=== PATIENT | female | born 1995 | race Two or more races ===

== ENCOUNTER 2017-08-23 19:51 | Emergency (ER) | payer BC, OTHER ==
[~2017-08-23] VITALS: Ht 152.4 cm; Wt 54.4 kg
--- NOTE | 2017-08-23 20:14 | NUR ---
PT BIB [facility] WITH A C/O UNWITNESSED SEIZURE. PT HAS HX OF BRAIN TUMOR. PT HAS AV SHUNT RT SIDE OF HEAD. PT IS AA&O X3. PT IS SPEAKING IN SLOW SENTENCES. PT'S PARENTS AND MD ARE AT THE BEDSIDE. PT IS ON THE MONITOR AND CONTINUOUS PULSE OX.
--- NOTE | 2017-08-23 20:14 | NUR ---
SR UP X 2 AND PADDED.
[2017-08-23 20:43] LABS: BASOPHILS # (AUTO) 0.2 /CMM (0.0-0.2); EOSINOPHILS % (AUTO) 3.1 % (0.0-6.0); HEMATOCRIT 44 % (33-45); HEMOGLOBIN 14.8 g/dL (11.5-14.8); LYMPHOCYTES # (AUTO) 2.4 /CMM (0.8-4.8); LYMPHOCYTES % (AUTO) 15.4 % (20.0-44.0); MEAN CORPUSCULAR HEMOGLOBIN 28 PG (26.0-33.0); MEAN CORPUSCULAR HGB CONC 34 g/dl (31.0-36.0); MEAN CORPUSCULAR VOLUME 82 fL (82-100); MONOCYTES # (AUTO) 0.7 /CMM (0.1-1.30); MONOCYTES % (AUTO) 4.7 % (2.0-12.0); NEUTROPHILS # (AUTO) 11.6 /CMM (1.8-8.9); NEUTROPHILS % (AUTO) 75.8 % (43.0-81.0); PLATELET COUNT (AUTO) 288 /CMM (150-450); RDW COEFFICIENT OF VARIATION 12.2 (11.5-15.0); RED BLOOD CELL COUNT(AUTO) 5.34 MIL/uL (4.0-5.2); WHITE BLOOD COUNT (AUTO) 15.4 K/uL (4.3-11.0)
[2017-08-23 20:45] LABS: APPEARANCE,URINE Clear (CLEAR); BILIRUBIN,URINE Negative (NEGATIVE); BLOOD, URINE Negative Ery/uL (NEGATIVE); COLOR,URINE Yellow (YELLOW); KETONES,URINE Trace (NEGATIVE); LEUKOCYTE ESTERASE ,URINE Negative (NEGATIVE); NITRITE, URINE Negative (NEGATIVE); PH,URINE 5.5 (5.0-8.0); PROTEIN,URINE 30 mg/dl (NEGATIVE); UGLUCOSE Negative (NEGATIVE); UROBILINOGEN,URINE 0.2 EU/dL (0.2)
[2017-08-23 20:54] LABS: CALCIUM, SERUM 9.1 mg/dL (8.5-10.1); CREATININE 0.9 mg/dL (0.6-1.3); POTASSIUM 4.1 mmol/L (3.5-5.1)
[2017-08-23 21:01] LABS: BACTERIA,URINE Moderate /HPF (None Seen); RBC,URINE NONE SEEN /HPF (0-2); SQUAMOUS EPITHELIAL CELL,UR Few /HPF (None Seen)
[2017-08-23 21:05] LABS: ALBUMIN 3.9 g/dL (3.4-5.0); BILIRUBIN,DIRECT 0.1 mg/dL (0.0-0.2); BILIRUBIN,TOTAL 0.7 mg/dL (0.2-1.0); TOTAL PROTEIN, SERUM 7.6 g/dL (6.4-8.2)
--- NOTE | 2017-08-23 21:10 | NUR ---
PT REQUESTED WATER AND IT WAS OK'D BY . PT TOLERATED PO WELL.
--- NOTE | 2017-08-23 21:14 | NUR ---
PT IS IN CT.
[2017-08-23 21:17] LABS: INR 0.95 (0.85-1.15)
--- NOTE | 2017-08-23 21:40 | NUR ---
PT RETURNED FROM CT.
--- NOTE | 2017-08-23 22:15 | NUR ---
PT AMBULATED TO THE BATHROOM WITH A STEADY GAIT.
--- NOTE | 2017-08-23 22:30 | NUR ---
DR. SKAGGS NEUROLOGY SPEAKING TO DR. ROSALES REGARDING POC.
--- NOTE | 2017-08-23 22:36 | NUR ---
DR SANDHU IS AT THE BEDSIDE SPEAKING TO THE PT AND HER MOTHER.
--- NOTE | 2017-08-23 23:20 | NUR ---
PT APPEARS TO BE RESTING COMFORTABLY WITH NO S/S OF PAIN OR DISTRESS NOTED.
[2017-08-23] MEDS ORDERED: LEVETIRACETAM (250 MG) 250 MG TABLET PO ONE ×2 (23:30→23:49)
--- NOTE | 2017-08-24 00:09 | NUR ---
RECEIVED A CALL FROM CARIDAD AT [facility]. PT HAS BEEN ACCEPTED UNDER DR. VERA. PT IS ASSIGNED TO #: [id number] NUMBER FOR REPORT IS [phone]. (CHOOSE OPTION 1 AND USE EXT [id number])
--- NOTE | 2017-08-24 00:13 | NUR ---
CALLED [facility] AND SPOKE TO CERTIFIED CYTOTECHNOLOGIST LUKAS TO ARRANGE AN ALS TRANSPORT TO [facility]. ALS UNIT WILL ARRIVE BETWEEN [phone]. TRIP #: [id number]
[2017-08-24 00:51] VITALS: BP 92/62
--- NOTE | 2017-08-24 00:59 | NUR ---
CALLING REPORT TO MARIANN FRASER FOR REPORT
--- NOTE | 2017-08-24 01:06 | NUR ---
REPORT GIVEN TO MILVIA DE LEON AT [facility].
--- NOTE | 2017-08-24 01:39 | NUR ---
REPORT GIVEN TO VIPUL CARBAJAL. COPY OF CHART GIVEN TO EMT. ROSEY. PT IS BEING TRANSFERRED TO [facility].
== END 2017-08-24 01:42 ==
LOC: ER 19:53 → EDBD 19:53 → ER 08-24 01:42
DX: R56.9 Unspecified convulsions (principal); R79.1 Abnormal coagulation profile; R82.99 Other abnormal findings in urine; Z85.841 Personal history of malignant neoplasm of brain; Z98.890 Other specified postprocedural states
CPT/HCPCS: 36415; 70450; 71045; 80048; 80076; 81001; 84702; 85025; 85730; 87086; 99285; A4606; Z7610 ×2; 81000-TC

== ENCOUNTER 2020-07-10 10:00 | Outpatient (CLI) | payer BC | END 2020-07-10 23:59 | disposition home or self-care (01) | LOC: WOU 10:00 | PROVIDERS: ATTEND Podiatrist Foot & Ankle Surgery | DX: L84 Corns and callosities (principal); M79.672 Pain in left foot; M79.671 Pain in right foot; R26.9 Unspecified abnormalities of gait and mobility | CPT/HCPCS: G0463 ==